=== PATIENT | female | born 1985 | race Caucasian/White ===

== ENCOUNTER 2019-11-20 16:19 | Emergency (ER) | payer MEDICAID ==
--- NOTE | 2019-11-20 16:34 | ER Document Report ---
ED Medical Screen (RME) - General Chief Complaint: Psych Problem Stated Complaint: IVC W/ PAPERS Time Seen by Provider: 11/20/19 16:31 - HPI Notes: 11/20/19 16:32 Patient is a 34-year-old female placed on IVC papers by her father with concern of alcohol abuse and abnormal behavior. It was reported that she stated when she was in the bathtub that she just wanted to "." Patient is adamantly denying this at this time. Patient is very upset that she is even here. The IVC papers also noted that even when it is cold outside she is sleeping on the porch. She has never been diagnosed with any mental health issues. She did go through methadone clinic in the past. She denies any other drug use, but does smoke cigarettes. No recent illness. No fever, headache, chest pain, shortness breath, abdominal pain. Denies . I have treated and performed a rapid initial assessment of this patient. A comprehensive ED assessment and evaluation of the patient, analysis of test results and completion of medical decision making process will be conducted by additional ED providers. PHYSICAL EXAMINATION: GENERAL: Well-appearing, well-nourished and in no acute distress. A&Ox4. Patient is not very forthcoming with the interview questions and states that she will no longer be answering any questions as there are too many people around her (i.e. security) Neuro: Cranial nerves grossly intact Psych: Patient is very irritable - Related Data Allergies/Adverse Reactions: No Known Allergies Allergy (Unverified 05/31/19 13:32) Past Medical History Neurological Medical History: Reports: Hx Seizures Renal/ Medical History: Denies: Hx Peritoneal Dialysis Past Surgical History: Reports: Hx Section Physical Exam - Vital signs Vitals: Temp Pulse Resp BP Pulse Ox 98.1 F 121 H 22 H 137/95 H 97 11/20/19 16:28 11/20/19 16:28 11/20/19 16:28 11/20/19 16:28 11/20/19 16:28 Course - Vital Signs Vital signs: Temp Pulse Resp BP Pulse Ox 98.1 F 121 H 22 H 137/95 H 97 11/20/19 16:28 11/20/19 16:28 11/20/19 16:28 11/20/19 16:28 11/20/19 16:28
[2019-11-20 18:19] LABS: ABSOLUTE LYMPHOCYTES (AUTO) 2.6 10^3/uL (0.5-4.7); ABSOLUTE MONOCYTES (AUTO) 0.3 10^3/uL (0.1-1.4); ABSOLUTE NEUT (AUTO) 3.4 10^3/uL (1.7-8.2); BASOPHILS % (AUTO) 0.7 % (0-2); EOSINOPHILS % (AUTO) 0.6 % (0-6); HEMATOCRIT 44.1 % (36.0-47.0); HEMOGLOBIN 14.9 g/dL (12.0-15.5); LYMPHOCYTES % (AUTO) 40.1 % (13-45); MEAN CORPUSCULAR HEMOGLOBIN 32.6 pg (27.0-33.4); MEAN CORPUSCULAR HGB CONC 33.7 g/dL (32.0-36.0); MEAN CORPUSCULAR VOLUME 97 fl (80-97); MONOCYTES % (AUTO) 5.2 % (3-13); PLATELET COUNT 186 10^3/uL (150-450); RED BLOOD COUNT 4.56 10^6/uL (3.72-5.28); RED CELL DISTRIBUTION WIDTH 20.5 % (11.5-14.0); SEGMENTED NEUTROPHILS % (AUTO) 53.4 % (42-78); TOTAL CELLS COUNTED % (AUTO) 100 %; WHITE BLOOD COUNT 6.5 10^3/uL (4.0-10.5)
[2019-11-20 18:27] LABS: ALBUMIN 4.7 g/dL (3.5-5.0); ALCOHOL 265 mg/dL (NONE DETECTED); ALKALINE PHOSPHATASE 84 U/L (38-126); ANION GAP 18 (5-19); ASPARTATE AMINO TRANSFERASE 229 U/L (14-36); BILIRUBIN,DIRECT 0.3 mg/dL (0.0-0.4); BILIRUBIN,TOTAL 0.8 mg/dL (0.2-1.3); BLOOD UREA NITROGEN 8 mg/dL (7-20); CALCIUM 9.5 mg/dL (8.4-10.2); CARBON DIOXIDE 21 mmol/L (22-30); CHLORIDE 104 mmol/L (98-107); GLUCOSE 92 mg/dL (75-110); POTASSIUM 3.6 mmol/L (3.6-5.0); TOTAL PROTEIN 7.9 g/dL (6.3-8.2)
[2019-11-20 18:31] LABS: ACETAMINOPHEN < 10 ug/mL (10-30); SALICYLATE < 1.0 mg/dL (2.0-20.0)
[2019-11-20] MEDS ORDERED: DIPHENHYDRAMINE HCL 50 MG CAPSULE PO ONE (18:35)
--- NOTE | 2019-11-20 18:43 | ER Document Report ---
Entered by RIVKA DERAS SCRIBE 11/20/19 1746 Acting as scribe for:JOSH HERNANDEZ MD ED Psych Disorder / Suicide - General Chief Complaint: Psych Problem Stated Complaint: IVC W/ PAPERS Time Seen by Provider: 11/20/19 16:31 Information source: Patient Notes: 34 year old female patient presents to the emergency department today on IVC paperwork for alleged suicidal comments. IVC paperwork states that the patient has been consuming EtOH heavily recently, not sleeping, and made a comment today while bathing that she was "tired and wanted to ". Patient has been committed on multiple occasions in the past per IVC paperwork. Patient does endorse some of the details from the IVC petition including EtOH abuse, not sleeping, and recent weight loss. Patient does not endorse the suicidal comment that her father mentions in the paperwork. Patient states "I said that I was tired but never said I wanted to ". Patient states that "this state is ridiculous", going on to add that she recently [place] here from [place] and they "won't give her methadone and xanax at the same time here". Patient has been on 120mg of methadone in the past as well as 2mg xanax daily which she has not had since moving here. Patient attributes all of her current problems with not having these medications. Patient states she has not been getting her Xanax or her methadone and admits to self-medicating with alcohol for her anxiety. Patient has had EtOH withdrawal causing seizures in the past, last time being about one week ago. TRAVEL OUTSIDE OF THE [place] IN LAST 30 DAYS: No - Related Data Allergies/Adverse Reactions: No Known Allergies Allergy (Unverified 05/31/19 13:32) Home Medications: not currewntly on medications. Past Medical History - General Information source: Patient Last Menstrual Period: One week ago - Social History Smoking Status: Current Every Day Smoker Cigarette use (# per day): Yes - 1 1/2 per day Chew tobacco use (# tins/day): No Smoking Education Provided: No Frequency of alcohol use: Heavy Drug Abuse: Heroin - Prior history of IV heroin abuse. Presently on a methadone program. Lives with: Family Family History: DM - Mother Patient has suicidal ideation: No Patient has homicidal ideation: No Neurological Medical History: Reports: Hx Seizures - EtOH withdrawal Psychiatric Medical History: Reports: Hx Anxiety Past Surgical History: Reports: Hx Section Review of Systems - Review of Systems Constitutional: See HPI, Other - Admits to EtOH abuse, Weight loss - 20 lbs recently, without trying to lose weight EENT: No symptoms reported Cardiovascular: No symptoms reported Respiratory: No symptoms reported Gastrointestinal: No symptoms reported Genitourinary: No symptoms reported Female Genitourinary: No symptoms reported Musculoskeletal: No symptoms reported Skin: No symptoms reported Hematologic/Lymphatic: No symptoms reported Neurological/Psychological: See HPI, Depression, Anxiety. denies: Suicidal ideation -: Yes All other systems reviewed and negative Physical Exam - Vital signs Vitals: Temp Pulse Resp BP Pulse Ox 98.1 F 121 H 22 H 137/95 H 97 11/20/19 16:28 11/20/19 16:28 11/20/19 16:28 11/20/19 16:28 11/20/19 16:28 - Notes Notes: General: Alert, appears well. EtOH odor on breath. HEENT: Normocephalic. Atraumatic. PERRL. Extraocular movements intact. Oropharynx clear. Neck: Supple. Non-tender. Respiratory: No respiratory distress. Clear and equal breath sounds bilaterally. Cardiovascular: Regular rate and rhythm. Abdominal: Normal Inspection. Non-tender. No distension. Normal Bowel Sounds. Back: No gross abnormalities. Extremities: Moves all four extremities. Upper extremities: Normal inspection. Normal ROM. Lower extremities: Normal inspection. No edema. Normal ROM. Neurological: Normal cognition. AAOx4. Normal speech. Psychological: Normal affect. Normal Mood. Denies suicidal ideation. Skin: Warm. Dry. Normal color. Course - Vital Signs Vital signs: Temp Pulse Resp BP Pulse Ox 98.1 F 121 H 22 H 137/95 H 97 11/20/19 16:28 11/20/19 16:28 11/20/19 16:28 11/20/19 16:28 11/20/19 16:28 - Laboratory Result Diagrams: 11/20/19 17:05 11/20/19 17:05 Laboratory results interpreted by me: 11/20/19 11/20/19 11/20/19 17:05 17:05 17:05 RDW 20.5 H Carbon Dioxide 21 L AST 229 H Urine Protein 100 H Urine Glucose (UA) 50 H Urine Ketones TRACE H Urine Blood MODERATE H Ur Leukocyte Esterase TRACE H Salicylates < 1.0 L Acetaminophen < 10 L - EKG Interpretation by Me EKG shows normal: Sinus rhythm, [place], Intervals, QRS Complexes, ST-T Waves Rate: Tachycardia - 107 Discharge - Discharge Clinical Impression: Passive suicidal ideations, Chronic alcohol abuse Depression Qualifiers: Depression Type: unspecified Qualified Code(s): F32.9 - Major depressive disorder, single episode, unspecified Opiate dependence Qualifiers: Substance use status: with unspecified opioid-induced disorder Qualified Code(s): F11.29 - Opioid dependence with unspecified opioid-induced disorder Alcohol intoxication Qualifiers: Complication of substance-induced condition: with unspecified complication Qualified Code(s): F10.929 - Alcohol use, unspecified with intoxication, unspecified Condition: Stable Disposition: PSYCH HOSP/UNIT Scribe Attestation: 11/20/19 21:23 I personally performed the services described in the documentation, reviewed and edited the documentation which was dictated to the scribe in my presence, and it accurately records my words and actions. I personally performed the services described in the documentation, reviewed and edited the documentation which was dictated to the scribe in my presence, and it accurately records my words and actions.
[2019-11-20 18:46] LABS: APPEARANCE,URINE CLOUDY; BILIRUBIN,URINE NEGATIVE (NEGATIVE); COLOR,URINE YELLOW; GLUCOSE, URINE 50 mg/dL (NEGATIVE); KETONES,URINE TRACE mg/dL (NEGATIVE); LEUKOCYTE ESTERASE,URINE TRACE (NEGATIVE); NITRITE,URINE NEGATIVE (NEGATIVE); PROTEIN,URINE 100 mg/dL (NEGATIVE); URINE SPECIFIC GRAVITY 1.018; UROBILINOGEN,URINE NEGATIVE mg/dL (<2.0)
[2019-11-20 18:50] LABS: URINE AMPHETAMINES SCREEN NEGATIVE; URINE BARBITURATES SCREEN NEGATIVE; URINE BENZODIAZEPINES SCREEN NEGATIVE; URINE COCAINE SCREEN NEGATIVE; URINE MARIJUANA (THC) SCREEN NEGATIVE; URINE PHENCYCLIDINE SCREEN NEGATIVE
[2019-11-20 18:53] LABS: URINE METHADONE SCREEN UNCONFIRMED POSITIVE
[2019-11-20] MEDS ORDERED: LORAZEPAM 1 MG TABLET PO ONE (22:34)
[2019-11-21] MEDS ORDERED: LORAZEPAM 1 MG TABLET PO ONE (00:28)
[2019-11-21] MEDS ORDERED: LORAZEPAM 1 MG TABLET PO PRN ×3 (02:40→18:07)
--- NOTE | 2019-11-21 07:46 | EKG REPORT ---
SEVERITY:- BORDERLINE ECG - SINUS TACHYCARDIA NONSPECIFIC ST-T CHANGES- INFERIOR LEADS : Confirmed by: Santana Rocha MD 21-Nov-2019 07:45:25
[2019-11-21] MEDS ORDERED: DIPHENHYDRAMINE HCL 50 MG CAPSULE PO ONE (10:38)
[2019-11-21] MEDS ORDERED: HALOPERIDOL 5 MG TABLET PO ONE (10:38)
[2019-11-21] MEDS ORDERED: NITROFURANTOIN MONOHYD/M-CRYST 100 MG CAPSULE PO ONE (10:39)
[2019-11-21] MEDS ORDERED: HALOPERIDOL 5 MG TABLET PO PRN (10:40)
[2019-11-21] MEDS ORDERED: DIPHENHYDRAMINE HCL 50 MG CAPSULE PO PRN (10:41)
--- NOTE | 2019-11-21 14:30 | ER Document Report ---
Doctor's Note Notes: 11/21/19 14:28 Patient's vital signs and previous labs, diagnostic images reviewed. She is IVC'd for suicidal commands. reviewed mental health notes, nurse's notes and previous providers notes. VSS. Pt is in no distress at this time. Denies any SI or HI. Patient does have a UTI, will start treating her with Macrobid a ntibiotic therapy. First dose was already given. General: A&Ox3. Answers questions appropriately. Heart: RRR Lungs: CTAB Psych: Flat affect A/P: Continue monitoring and rec's per . Normal diet Patient is stay for another day per mental health 11/21/19 14:29 11/21/19 14:30
--- NOTE | 2019-11-21 16:07 | ER Document Report ---
Doctor's Note Notes: 11/21/19 15:54 Patient who came in with alcohol intoxication and is currently being monitored for alcohol withdrawal who is also making concerning statements for self-harm and possible suicidal ideation. After discussion with behavioral health team patient has been converted to a full involuntary commitment. Aside from t achycardia physical exam is grossly unremarkable and tachycardia has been steadily improving.. CIWA with appropriate benzodiazepine treatment will be placed. Patient is quite displeased with this plan.
[2019-11-21] MEDS ORDERED: LORAZEPAM 1 MG TABLET PO SCH (16:45)
[2019-11-21] MEDS: NITROFURANTOIN MONOHYD/M-CRYST 100 MG CAPSULE PO SCH (17:36)
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
[2019-11-22] MEDS: NITROFURANTOIN MONOHYD/M-CRYST 100 MG CAPSULE PO SCH (06:56)
--- NOTE | 2019-11-22 09:58 | PSYCHOLOGICAL NOTE ---
Psych Note - Psych Note Date seen by psych provider: 11/22/19 Time seen by psych provider: 09:05 Psych Note: Reason for Consult: IVC Check in Conducted with patient Patient reports frustration with the fact that her parents petitioned her for involuntary commitment. She reports that she was in the bathtub relaxing and stated that she felt she could not do it anymore however adamantly denies this was a comment indicating suicidal ideation. She reports that coming from [place] her substance abuse treatment with methadone significantly changed. She reports that with [facility] I started her on a much lower dose and instead of using positive coping skills she turned to drinking. She reports that she was dropped from the program because of this and told that she needed to go to [facility] for treatment before being re-admitted into their methadone program. Patient reports that because of her drinking she had physical exhaustion stating "people think drinking is an escape but honestly it is really hard work because of everything that happens when you are not drinking." Patient reports that she has a young daughter and she would never harm herself because of her. She confirms both she and her daughter live with her parents. Patient discloses that she is not ready to go to [facility] and has been telling her family to let her prepare herself and then she will voluntarily go. Patient's mood is euthymic with congruent affect as evidenced by smiling engaging with clinician. She engages appropriate with clinician and maintains good eye contact. Conversational speech is within normal rate, tone and prosody. Patient confirms her parents are part of her plan of care and consents for the behavior health team to contact her mother. Impression/Plan: Patient is recommended for rescind of Petition and is cleared from acute psychiatric services. Patient reports moving to [place] from [place] and has experienced a significant difference in plan of care approaches. She disclosed her plan is to go to [facility] "when I get my shit together" so she can be re- established in the methadone program at the [facility]. She denies any thoughts of wanting to harm herself or others and reports her comments where misunderstood. She engaged fully and appropriately with clinician. She is encouraged to follow through with her self-developed plan of care to voluntarily go to [facility] for substance misuse treatment. Dr. Shultz was consulted on the care and management of this patient; attending physician is in agreement with recommendations and dispositions.
--- NOTE | 2019-11-22 10:15 | ER Document Report ---
Doctor's Note Notes: 11/22/19 10:15 S: Rounded on patient this morning. She has been in our emergency department for not quite 2 days on IVC papers. She was brought in by parents after she stated that she was "tired" and they thought that she was expressing suicidal ideations. She is a patient who has had a long history of polysubstance abuse. For several years while she lived in [place] she was on methadone and also concurrently taking Xanax. She moved down to [place] about a year ago and got into methadone clinic but was not allowed to take Xanax at the same time. She states that she has been using alcohol in order to help her cope. She has been using quite a bit. She does have a history of alcoholism and alcohol withdrawal seizures. She was monitored here in the emergency department for any seizure activity. Behavioral health is seen the patient and feel like she can be discharged home with close outpatient follow-up for detox with [facility]. Patient is aware of this plan and agrees. She denies any SI, HI, hallucinations this morning. She is does express a lot of frustration with the methadone program here in [place]. She states that the antibiotic that she was placed onMacrobidhurts her stomach so we will start her on a new antibiotic. O: Constitutional: Alert, oriented, in no acute distress. Cardiac: Regular rate and rhythm, no murmurs, rubs, gallops Lungs: Clear to auscultation, no wheezes, rhonchi, rales Abdomen: Nontender, soft, nondistended Psych: Denies SI, HI, hallucinations. She voices frustration with not being able to have her Xanax and methadone as she deems appropriate for herself. She has no tremors. She appears sober A/P: Spoke with behavioral health about the patient and her IVC papers have been rescinded. They have encouraged patient to follow-up with [facility] and patient agrees with the plan. We will discharge her home. There are no psychot ropic medication recommendations for discharge at this time. I have encouraged patient strongly to follow-up with [facility]. She agrees with the plan. Mom on the way for ride.
[2019-11-22 10:37] VITALS: BP 140/85
== END 2019-11-22 11:08 | disposition home or self-care (01) ==
LOC: ER 16:19
DX: F10.229 Alcohol dependence with intoxication, unspecified (principal); F32.9 Major depressive disorder, single episode, unspecified; R45.851 Suicidal ideations; F11.29 Opioid dependence with unspecified opioid-induced disorder; R63.4 Abnormal weight loss; F41.9 Anxiety disorder, unspecified; R00.0 Tachycardia, unspecified; F17.210 Nicotine dependence, cigarettes, uncomplicated; N39.0 Urinary tract infection, site not specified
CPT/HCPCS: 93005; 36415; 87086; 80307 ×4; 84703; 85025; 87088; 80053; 81001; 87186; 93010; J3490 ×5; 99285; J8499

== ENCOUNTER 2019-12-01 12:54 | Observation (INO) | payer MEDICAID, OTHER ==
[2019-12-01] MEDS ORDERED: THIAMINE HCL 100 MG, FOLIC ACID 1 MG in NORMAL SALINE 250 ML IV ONE (13:50)
[2019-12-01] MEDS ORDERED: RINGERS SOLUTION,LACTATED 2,000 ML IV ONE (13:50)
[2019-12-01] MEDS ORDERED: METOCLOPRAMIDE HCL INJ/PF 10 MG/2 ML SDV IV ONE (13:51)
--- NOTE | 2019-12-01 13:53 | ER Document Report ---
ED Medical Screen (RME) - General Chief Complaint: Diarrhea Stated Complaint: DIARRHEA Time Seen by Provider: 12/01/19 13:33 Notes: Patient is a 34-year-old female who presents to the emergency department for diarrhea and vomiting. Patient has a is an everyday drinker and drinks vodka. She currently has a cup of vodka here in the emergency department. Patient also vapes. Patient was here on November 18 for suicidal ideations. She has a history of depression and is not currently on medications. She was also diagnosed with a urinary tract infection when she was here on the , but states that the medications make her "sick." Exam: Tearful, labile mood. I have greeted and performed a rapid initial assessment of this patient. A comprehensive ED assessment and evaluation of the patient, analysis of test results and completion of medical decision making process will be conducted by an additional ED providers. TRAVEL OUTSIDE OF THE U.S. IN LAST 30 DAYS: No - Related Data Allergies/Adverse Reactions: No Known Allergies Allergy (Verified 12/01/19 13:32) Past Medical History Neurological Medical History: Reports: Hx Seizures - EtOH withdrawal Renal/ Medical History: Denies: Hx Peritoneal Dialysis Psychiatric Medical History: Reports: Hx Anxiety Past Surgical History: Reports: Hx Section Physical Exam - Vital signs Vitals: Temp Pulse Resp BP Pulse Ox 97.3 F 125 H 22 H 143/81 H 96 12/01/19 12:55 12/01/19 12:55 12/01/19 12:55 12/01/19 12:55 12/01/19 12:55 Course - Vital Signs Vital signs: Temp Pulse Resp BP Pulse Ox 97.3 F 125 H 22 H 143/81 H 96 12/01/19 12:55 12/01/19 12:55 12/01/19 12:55 12/01/19 12:55 12/01/19 12:55
[2019-12-01] MEDS ORDERED: KETAMINE HCL INJ 500 MG/10 ML VIAL IM ONE (13:58)
[2019-12-01] MEDS ORDERED: LORAZEPAM INJ 2 MG/1 ML VIAL IM ONE (13:58)
--- NOTE | 2019-12-01 14:44 | ER Document Report ---
ED General - General Chief Complaint: ETOH Abuse Stated Complaint: DIARRHEA Time Seen by Provider: 12/01/19 13:33 Mode of Arrival: Ambulatory Information source: Parent Cannot obtain history due to: Intoxicated Notes: 34-year-old female arrives by POV with her parents Joaquin Ponce well as pts daughter by name of Sondra and they now have custody of this granddaughter. She was evaluated by Dr. Shultz around 2 weeks ago because of similar alcoholism problems. For several days now the patient is been complaining of suicidal ideation but continues to drink 1 quart bottle of vodka a day and she has been doing this since she was 14 years old. She is positive for hepatitis C. she also has been smoking since she was 10 years old greater than 1 pack/day. Walk to the triage desk with a bottle of vodka in her hands and advises that she needs help. The parents reports that they have done all they have could and have spent a lot of money and try to get her to quit her drinking. Patient has been to many rehab facilities but always begins to drink again. Patient presented to the triage area with a flask of vodka asking for help. When someone tried to take her flask of vodka she became quite agitated and security was required to restrain her. Dr. Shultz was called at bedside after the patient was given 400 ketamine and 2 mg of Ativan IM. The patient was then given IV fluids wide open as well as banana bag labs were drawn for alcohol Tylenol level salicylate levels and LFTs CBC etc. patient was quite sedate after medications but was breathing well with nursing staff assessing patient by 1430 TRAVEL OUTSIDE OF THE [place] IN LAST 30 DAYS: No - HPI Onset: Just prior to arrival Onset/Duration: Sudden Quality of pain: No pain Severity: Moderate Pain Level: 2 Associated symptoms: Weakness, Other - Mother and father report patient was defecating over her room at the house Exacerbated by: Movement, Walking Similar symptoms previously: Yes Recently seen / treated by doctor: Yes - Related Data Allergies/Adverse Reactions: No Known Allergies Allergy (Verified 12/01/19 13:32) Past Medical History - General Information source: Patient, Parent, Law Enforcement - And [facility], Emergency Med Personnel Cannot obtain history due to: Intoxicated - Social History Smoking Status: Current Every Day Smoker Cigarette use (# per day): Yes Chew tobacco use (# tins/day): No Smoking Education Provided: Yes Frequency of alcohol use: Heavy Drug Abuse: Heroin Family History: DM - Mother Patient has suicidal ideation: No Patient has homicidal ideation: No Neurological Medical History: Reports: Hx Seizures - EtOH withdrawal Renal/ Medical History: Denies: Hx Peritoneal Dialysis Psychiatric Medical History: Reports: Hx Anxiety Past Surgical History: Reports: Hx Section Review of Systems - Review of Systems Constitutional: See HPI, Malaise, Weakness EENT: See HPI Cardiovascular: No symptoms reported Respiratory: No symptoms reported Gastrointestinal: See HPI, Fecal incontinence Genitourinary: No symptoms reported Female Genitourinary: No symptoms reported Musculoskeletal: No symptoms reported Skin: No symptoms reported Hematologic/Lymphatic: No symptoms reported Neurological/Psychological: No symptoms reported Physical Exam - Vital signs Vitals: Temp Pulse Resp BP Pulse Ox 97.3 F 125 H 22 H 143/81 H 96 12/01/19 12:55 12/01/19 12:55 12/01/19 12:55 12/01/19 12:55 12/01/19 12:55 Interpretation: Hypertensive, Tachycardic, Tachypneic - HEENT Head: Normocephalic Eyes: Normal Conjunctiva: Normal Cornea: Normal Extraocular movements intact: Yes Eyelashes: Normal Pupils: PERRL Pharynx: Normal Neck: Normal - Respiratory Respiratory status: Respiratory distress, Tachypnea, Other - Patient screaming at hospital security at time of exam in room #19; security were helping to m aintain her from hurting herself or others - Cardiovascular Rhythm: Tachycardia Heart sounds: Normal auscultation Murmur: No Friction rub: No Deedee's crunch: No - Abdominal Inspection: Normal Distension: No distension Bowel sounds: Normal Tenderness: Nontender - Genitourinary External exam: Normal - Extremities General upper extremity: Normal inspection, Normal strength General lower extremity: Normal inspection, Normal strength Course - Vital Signs Vital signs: Temp Pulse Resp BP Pulse Ox 97.3 F 125 H 17 141/96 H 100 12/01/19 12:55 12/01/19 12:55 12/01/19 16:01 12/01/19 16:00 12/01/19 16:01 - Laboratory Result Diagrams: 12/01/19 14:24 12/01/19 14:24 Laboratory results interpreted by me: 02/02/20 02/02/20 14:24 14:24 MCH 33.7 H RDW 22.8 H Glucose 115 H AST 314 H Alkaline Phosphatase 129 H Salicylates < 1.0 L Acetaminophen < 10 L Serum Alcohol 396 H* Critical Care Note - Critical Care Note Total time excluding time spent on procedures (mins): 90 Comments: Discussed this case with [facility] hospitalist at 1630 was able to speak with Dr. Villanueva who is in charge around 1635; he advised patient to go to the floor with Dr. Walton Discharge - Discharge Clinical Impression: Suicidal ideation, Toxic effect of ethanol, intentional self-harm Condition: Good Disposition: ADMITTED INPATIENT Admitting Provider: Isabelle (Hospitalist)
[2019-12-01 14:45] LABS: ABSOLUTE LYMPHOCYTES (AUTO) 2.1 10^3/uL (0.5-4.7); ABSOLUTE MONOCYTES (AUTO) 0.6 10^3/uL (0.1-1.4); ABSOLUTE NEUT (AUTO) 3.1 10^3/uL (1.7-8.2); BASOPHILS % (AUTO) 0.5 % (0-2); EOSINOPHILS % (AUTO) 0.1 % (0-6); HEMATOCRIT 43.7 % (36.0-47.0); HEMOGLOBIN 15.2 g/dL (12.0-15.5); LYMPHOCYTES % (AUTO) 35.9 % (13-45); MEAN CORPUSCULAR HEMOGLOBIN 33.7 pg (27.0-33.4); MEAN CORPUSCULAR HGB CONC 34.8 g/dL (32.0-36.0); MEAN CORPUSCULAR VOLUME 97 fl (80-97); MONOCYTES % (AUTO) 10.7 % (3-13); PLATELET COUNT 241 10^3/uL (150-450); RED BLOOD COUNT 4.52 10^6/uL (3.72-5.28); RED CELL DISTRIBUTION WIDTH 22.8 % (11.5-14.0); SEGMENTED NEUTROPHILS % (AUTO) 52.8 % (42-78); TOTAL CELLS COUNTED % (AUTO) 100 %; WHITE BLOOD COUNT 5.9 10^3/uL (4.0-10.5)
[2019-12-01 14:53] LABS: ALBUMIN 4.7 g/dL (3.5-5.0); ALKALINE PHOSPHATASE 129 U/L (38-126); ANION GAP 16 (5-19); ASPARTATE AMINO TRANSFERASE 314 U/L (14-36); BILIRUBIN,DIRECT 0.1 mg/dL (0.0-0.4); BILIRUBIN,TOTAL 0.7 mg/dL (0.2-1.3); BLOOD UREA NITROGEN 7 mg/dL (7-20); CALCIUM 9.2 mg/dL (8.4-10.2); CARBON DIOXIDE 24 mmol/L (22-30); CHLORIDE 103 mmol/L (98-107); GLUCOSE 115 mg/dL (75-110); POTASSIUM 3.8 mmol/L (3.6-5.0); TOTAL PROTEIN 7.6 g/dL (6.3-8.2)
[2019-12-01 14:55] LABS: ACETAMINOPHEN < 10 ug/mL (10-30); SALICYLATE < 1.0 mg/dL (2.0-20.0)
[2019-12-01 15:02] LABS: ALCOHOL 396 mg/dL (NONE DETECTED)
[2019-12-01] MEDS ORDERED: MIDAZOLAM 2 MG/2 ML INJ IV ONE ×2 (15:53→16:01)
--- NOTE | 2019-12-01 16:52 | RADIOLOGY REPORT (SQ) ---
EXAM DESCRIPTION: CHEST SINGLE VIEW COMPLETED DATE/TIME: 12/01/2019 4:38 pm REASON FOR STUDY: intoxicated COMPARISON: None. EXAM PARAMETERS: NUMBER OF VIEWS: One view. TECHNIQUE: Single frontal radiographic view of the chest acquired. RADIATION DOSE: NA LIMITATIONS: None. FINDINGS: LUNGS AND PLEURA: No opacities, masses or pneumothorax. No pleural effusion. MEDIASTINUM AND HILAR STRUCTURES: No masses. Contour normal. HEART AND VASCULAR STRUCTURES: Heart normal in size. Normal vasculature. BONES: No acute findings. HARDWARE: None in the chest. OTHER: No other significant finding. IMPRESSION: NO ACUTE RADIOGRAPHIC FINDING IN THE CHEST. TECHNICAL DOCUMENTATION: JOB ID: [id number] [employer]- All Rights Reserved Reading location - IP/workstation name: [email or web address]
[2019-12-01] MEDS ORDERED: ONDANSETRON HCL INJ/PF 4 MG/2 ML SDV IV PRN (17:31)
[2019-12-01] MEDS ORDERED: PROMETHAZINE HCL INJ 25 MG/1 ML VIAL IV PRN (17:31)
[2019-12-01] MEDS ORDERED: ACETAMINOPHEN 325 MG TABLET PO PRN (17:31)
[2019-12-01] MEDS ORDERED: NORMAL SALINE 1000 ML 1,000 ML IV PRN (17:31)
[2019-12-01] MEDS ORDERED: HALOPERIDOL LACTATE INJ 5 MG/1 ML VIAL IM PRN (17:36)
[2019-12-01] MEDS ORDERED: LORAZEPAM INJ 2 MG/1 ML VIAL IV PRN (17:39)
[2019-12-01] MEDS ORDERED: NORMAL SALINE 1000 ML 1,000 ML IV ONE (17:45)
--- NOTE | 2019-12-01 18:04 | PDOC H&P ---
History of Present Illness Patient complains of: Alcohol intoxication History of Present Illness: PAUL RON is a 34 year old female with a history of alcohol abuse [daily drinker], bipolar disorder not on any meds, recent diagnosis of hepatitis C virus-untreated, IV drug abuse, anxiety, who was brought into the hospital by her parents. Her parents had noted her to be once again incoherent, intoxicated because she had been constantly drinking alcohol. Patient has been very dehydrated and has not been eating much. Family reports that patient was stating that she is just tired and wants to stop. There was concern about suicidal ideation but patient was very intoxicated at the time already. When patient was brought to the ER patient was very agitated with a bottle of alcohol in her hand and required several security guards to subdue her. She was placed in four-point restraints and given 2 mg of Ativan and 400 mg of ketamine. Currently patient is still awake requesting to be let out of four-point r estraints. She is still clearly intoxicated. Most of history obtained from patient's father and mother via telephone. Past Medical History Neurological Medical History: Reports: Seizures - EtOH withdrawal Psychiatric Medical History: Reports: Alcohol Dependency, Bipolar Disorder, General Anxiety Disorder, Substance Abuse Infectious Medical History: Reports: Hepatitis C Past Surgical History Past Surgical History: Reports: Section Social History Information Source: Parent Smoking Status: Current Every Day Smoker Drugs: Heroin - Prior history of heroin use - Advance Directive Resuscitation Status: Other - Full code given too intoxicated to make her own decision. Family History Family History: DM - Mother Parental Family History Reviewed: Yes Children Family History Reviewed: Unknown Sibling(s) Family History Reviewed.: Unknown Medication/Allergy Home Medications: No Home Medications 12/01/19 Allergies/Adverse Reactions: No Known Allergies Allergy (Verified 12/01/19 13:32) Review of Systems ROS unobtainable: Due to mental status Physical Exam Vital Signs: Temp Pulse Resp BP Pulse Ox 97.3 F 125 H 17 141/96 H 100 12/01/19 12:55 12/01/19 12:55 12/01/19 16:01 12/01/19 16:00 12/01/19 16:01 Intake & Output 11/30/19 12/01/19 12/02/19 06:59 06:59 06:59 Intake Total 2251.2 Balance 2251.2 Weight 85.9 kg General appearance: PRESENT: no acute distress, cooperative, obese Eye exam: PRESENT: EOMI Mouth exam: PRESENT: neck supple Neck exam: ABSENT: JVD Respiratory exam: PRESENT: clear to auscultation jhony, unlabored. ABSENT: retraction, rhonchi, wheezes Cardiovascular exam: PRESENT: +S1, +S2, tachycardia. ABSENT: irregular rhythm GI/Abdominal exam: PRESENT: soft. ABSENT: rebound, rigid, tenderness Extremities exam: ABSENT: pedal edema Neurological exam: PRESENT: alert, awake, oriented to person, other - Protecting airway. ABSENT: oriented to place, oriented to time, oriented to situation Psychiatric exam: PRESENT: agitated Focused psych exam: ABSENT: delusional Results Laboratory Results: 12/01/19 14:24 12/01/19 14:24 12/01/19 12/01/19 12/01/19 14:24 14:24 14:24 WBC 5.9 RBC 4.52 Hgb 15.2 Hct 43.7 MCV 97 MCH 33.7 H MCHC 34.8 RDW 22.8 H Plt Count 241 Seg Neutrophils % 52.8 Sodium 143.4 Potassium 3.8 Chloride 103 Carbon Dioxide 24 Anion Gap 16 BUN 7 Creatinine 0.68 Est GFR ( Amer) > 60 Glucose 115 H Calcium 9.2 Total Bilirubin 0.7 AST 314 H Alkaline Phosphatase 129 H Total Protein 7.6 Albumin 4.7 Serum HCG, Qual NEGATIVE Impressions: Chest X-Ray 12/01/19 14:57 IMPRESSION: NO ACUTE RADIOGRAPHIC FINDING IN THE CHEST. Assessment and Plan - Diagnosis (1) Toxic metabolic encephalopathy Is this a current diagnosis for this admission?: Yes Plan: Very agitated secondary to alcohol intoxication Check urine drug screen. Requiring four-point restraints due to violent behavior Haldol IM as needed (2) Acute alcohol intoxication with alcoholism Qualifiers: Complication of substance-induced condition: with unspecified complication Qualified Code(s): F10.229 - Alcohol dependence with intoxication, unspecified Is this a current diagnosis for this admission?: Yes Plan: Alcohol level of over 300 Received a bolus of lactated Ringer's and IV thiamine in the ER. Given a normal saline bolus and start on D5 normal saline Currently not withdrawing as acutely intoxicated but will start to monitor for withdrawals early later today given a history of withdrawal seizure reported by her mother. Placed on CIWA monitoring every 4 hours starting later tonight. (3) Obesity (BMI 30-39.9) Is this a current diagnosis for this admission?: Yes Plan: Patient is to take better care of her diet and calorie intake. This will be hard to achieve given her significant substance abuse. (4) Suicidal ideation Is this a current diagnosis for this admission?: Yes Plan: Is not clear the patient truly voiced suicidal ideation based off what patient's mother told me besides she was acutely intoxicated at the time which is her usual substance abuse pattern. Currently on IVC and psychiatric consulted in the ER. I will follow-up regarding this once patient is sober in the morning - Time Time Spent with patient: 35 or more minutes
[2019-12-01] MEDS: DEXTROSE 5%-NORMAL SALINE 1,000 ML IV PRN (19:28)
[2019-12-01 21:06] LABS: APPEARANCE,URINE SLIGHTLY-CLOUDY; BILIRUBIN,URINE NEGATIVE (NEGATIVE); COLOR,URINE YELLOW; GLUCOSE, URINE NEGATIVE (NEGATIVE); KETONES,URINE NEGATIVE (NEGATIVE); LEUKOCYTE ESTERASE,URINE NEGATIVE (NEGATIVE); NITRITE,URINE POSITIVE (NEGATIVE); PROTEIN,URINE 30 mg/dL (NEGATIVE); URINE SPECIFIC GRAVITY 1.009; UROBILINOGEN,URINE NEGATIVE mg/dL (<2.0)
[2019-12-01 21:13] LABS: URINE AMPHETAMINES SCREEN NEGATIVE; URINE BARBITURATES SCREEN NEGATIVE; URINE BENZODIAZEPINES SCREEN NEGATIVE; URINE COCAINE SCREEN NEGATIVE; URINE MARIJUANA (THC) SCREEN NEGATIVE; URINE METHADONE SCREEN NEGATIVE; URINE PHENCYCLIDINE SCREEN NEGATIVE
[2019-12-01] MEDS: LORAZEPAM INJ 2 MG/1 ML VIAL IV PRN (22:46)
--- NOTE | 2019-12-02 00:16 | EKG REPORT ---
SEVERITY:- NORMAL ECG - SINUS RHYTHM : Confirmed by: Marlon Brown 02-Dec-2019 00:16:07
[2019-12-02] MEDS ORDERED: LORAZEPAM INJ 2 MG/1 ML VIAL ONE (00:19)
[2019-12-02] MEDS ORDERED: DIAZEPAM INJ 10 MG/2 ML DISP.SYRIN ONE (00:19)
[2019-12-02] MEDS ORDERED: LORAZEPAM INJ 2 MG/1 ML VIAL IV ONE (00:30)
[2019-12-02] MEDS ORDERED: DIAZEPAM INJ 10 MG/2 ML DISP.SYRIN IV ONE (00:30)
[2019-12-02] MEDS: DEXTROSE 5%-NORMAL SALINE 1,000 ML IV PRN (02:24)
[2019-12-02] MEDS: LORAZEPAM INJ 2 MG/1 ML VIAL IV PRN (04:20)
[2019-12-02] MEDS ORDERED: HALOPERIDOL LACTATE INJ 5 MG/1 ML VIAL IV ONE (05:00)
--- NOTE | 2019-12-02 09:32 | PDOC DISCHARGE SUMMARY ---
Impression - Admit/DC Date/PCP Admission Date/Primary Care Provider: 12/01/19 17:49 Discharge Date: 12/02/19 - Discharge Diagnosis (1) Toxic metabolic encephalopathy Is this a current diagnosis for this admission?: Yes (2) Acute alcohol intoxication with alcoholism Is this a current diagnosis for this admission?: Yes (3) Obesity (BMI 30-39.9) Is this a current diagnosis for this admission?: Yes (4) Suicidal ideation Is this a current diagnosis for this admission?: Yes - Additional Information Resuscitation Status: Full Code Discharge Diet: Regular Home Medications: No Home Medications 12/01/19 History of Present Illiness History of Present Illness: PAUL RON is a 34 year old female with a history of alcohol abuse [daily drinker], bipolar disorder not on any meds, recent diagnosis of hepatitis C virus-untreated, IV drug abuse, anxiety, who was brought into the hospital by her parents. Her parents had noted her to be once again incoherent, intoxicated because she had been constantly drinking alcohol. Patient has been very dehydrated and has not been eating much. Family reports that patient was stating that she is just tired and wants to stop. There was concern about suicidal ideation but patient was very intoxicated at the time already. When patient was brought to the ER patient was very agitated with a bottle of alcohol in her hand and required several security guards to subdue her. She was placed in four-point restraints and given 2 mg of Ativan and 400 mg of ketamine. Currently patient is still awake requesting to be let out of four-point restraints. She is still clearly intoxicated. Most of history obtained from patient's father and mother via telephone. Hospital Course Hospital Course: Patient was admitted after presenting with alcohol intoxication with blood alcohol levels over 300 and impaired judgment expressed with significant agitation and violence requiring security to hold patient down and placed in four-point restraints. Patient received ketamine and Ativan in the ER. I subsequently admitted patient for alcohol intoxication. Patient received IV fluids, thiamine placed on D5 normal saline. Through the night patient got agitated as well and required some Haldol. This morning patient's blood alcohol level is normal and patient is sober. Patient is no longer agitated but does appear anxious to leave and would like to go home. Urine drug screen was negative. Patient is fully oriented at this time. I have rescinded patient's IVC which was placed on initially due to reports from patient's mother that patient was saying that she was tired of her life and she just wants to let it be. This statement with some concern by patient's mother about suicidal thoughts but however patient was very intoxicated at the time she made a statement and had been drinking all day. Now the patient sober patient's denies suicidal or homicidal ideation. Notably, patient never had suicidal plans and never specifically voiced that she wanted to kill herself even while at home. Patient is currently not in active withdrawal. I have discussed with patient about alcohol and substance rehabilitation and have offered patient help with transitioning her to rehab but she has declined our help at this time. Patient is discharged in stable and stable condition. Physical Exam Vital Signs: Temp Pulse Resp BP Pulse Ox 98.2 F 108 H 16 150/99 H 100 12/02/19 08:26 12/02/19 08:26 12/02/19 08:26 12/02/19 08:26 12/02/19 08:26 Intake & Output 12/01/19 12/02/19 12/03/19 06:59 06:59 06:59 Intake Total 4947.2 Balance 4947.2 Weight 87.7 kg General appearance: PRESENT: no acute distress, cooperative Neurological exam: PRESENT: alert, awake, oriented to person, oriented to place, oriented to time, oriented to situation. ABSENT: ataxia, aphasic Psychiatric exam: PRESENT: anxious. ABSENT: agitated Results Laboratory Results: WBC 5.9 10^3/uL (4.0-10.5) 12/01/19 14:24 RBC 4.52 10^6/uL (3.72-5.28) 12/01/19 14:24 Hgb 15.2 g/dL (12.0-15.5) 12/01/19 14:24 Hct 43.7 % (36.0-47.0) 12/01/19 14:24 MCV 97 fl (80-97) 12/01/19 14:24 MCH 33.7 pg (27.0-33.4) H 12/01/19 14:24 MCHC 34.8 g/dL (32.0-36.0) 12/01/19 14:24 RDW 22.8 % (11.5-14.0) H 12/01/19 14:24 Plt Count 241 10^3/uL (150-450) 12/01/19 14:24 Lymph % (Auto) 35.9 % (13-45) 12/01/19 14:24 [place] % (Auto) 10.7 % (3-13) 12/01/19 14:24 Eos % (Auto) 0.1 % (0-6) 12/01/19 14:24 Baso % (Auto) 0.5 % (0-2) 12/01/19 14:24 Absolute Neuts (auto) 3.1 10^3/uL (1.7-8.2) 12/01/19 14:24 Absolute Lymphs (auto) 2.1 10^3/uL (0.5-4.7) 12/01/19 14:24 Absolute Monos (auto) 0.6 10^3/uL (0.1-1.4) 12/01/19 14:24 Absolute Eos (auto) 0.0 10^3/uL (0.0-0.6) 12/01/19 14:24 Absolute Basos (auto) 0.0 10^3/uL (0.0-0.2) 12/01/19 14:24 Seg Neutrophils % 52.8 % (42-78) 12/01/19 14:24 Sodium 143.4 mmol/L (137-145) 12/01/19 14:24 Potassium 3.8 mmol/L (3.6-5.0) 12/01/19 14:24 Chloride 103 mmol/L (98-107) 12/01/19 14:24 Carbon Dioxide 24 mmol/L (22-30) 12/01/19 14:24 Anion Gap 16 (5-19) 12/01/19 14:24 BUN 7 mg/dL (7-20) 12/01/19 14:24 Creatinine 0.68 mg/dL (0.52-1.25) 12/01/19 14:24 Est GFR ( Amer) > 60 (>60) 12/01/19 14:24 Est GFR (MDRD) Non-Af > 60 (>60) 12/01/19 14:24 Glucose 115 mg/dL (75-110) H 12/01/19 14:24 Calcium 9.2 mg/dL (8.4-10.2) 12/01/19 14:24 Total Bilirubin 0.7 mg/dL (0.2-1.3) 12/01/19 14:24 Direct Bilirubin 0.1 mg/dL (0.0-0.4) 12/01/19 14:24 Neonat Total Bilirubin Not Reportable 12/01/19 14:24 Neonat Direct Bilirubin Not Reportable 12/01/19 14:24 Neonat Indirect Bili Not Reportable 12/01/19 14:24 AST 314 U/L (14-36) H 12/01/19 14:24 ALT 96 U/L (<35) 12/01/19 14:24 Alkaline Phosphatase 129 U/L (38-126) H 12/01/19 14:24 Total Protein 7.6 g/dL (6.3-8.2) 12/01/19 14:24 Albumin 4.7 g/dL (3.5-5.0) 12/01/19 14:24 Serum HCG, Qual NEGATIVE (NEGATIVE) 12/01/19 14:24 Urine Color YELLOW 12/01/19 20:20 Urine Appearance SLIGHTLY-CLOUDY 12/01/19 20:20 Urine pH 5.0 (5.0-9.0) 12/01/19 20:20 Ur Specific [place] 1.009 12/01/19 20:20 Urine Protein 30 mg/dL (NEGATIVE) H 12/01/19 20:20 Urine Glucose (UA) NEGATIVE mg/dL (NEGATIVE) 12/01/19 20:20 Urine Ketones NEGATIVE mg/dL (NEGATIVE) 12/01/19 20:20 Urine Blood MODERATE (NEGATIVE) H 12/01/19 20:20 Urine Nitrite POSITIVE (NEGATIVE) H 12/01/19 20:20 Urine Bilirubin NEGATIVE (NEGATIVE) 12/01/19 20:20 Urine Urobilinogen NEGATIVE mg/dL (<2.0) 12/01/19 20:20 Ur Leukocyte Esterase NEGATIVE (NEGATIVE) 12/01/19 20:20 Urine WBC (Auto) 3 /HPF 12/01/19 20:20 Urine RBC (Auto) 1 /HPF 12/01/19 20:20 Urine Bacteria (Auto) 2+ /HPF 12/01/19 20:20 Squamous Epi Cells Auto 11 /HPF 12/01/19 20:20 Urine Mucus (Auto) OCC /LPF 12/01/19 20:20 Urine Ascorbic Acid NEGATIVE (NEGATIVE) 12/01/19 20:20 Salicylates < 1.0 mg/dL (2.0-20.0) L 12/01/19 14:24 Urine Opiates Screen NEGATIVE 12/01/19 20:20 Urine Methadone Screen NEGATIVE 12/01/19 20:20 Acetaminophen < 10 ug/mL (10-30) L 12/01/19 14:24 Ur Barbiturates Screen NEGATIVE 12/01/19 20:20 Ur Phencyclidine Scrn NEGATIVE 12/01/19 20:20 Ur Amphetamines Screen NEGATIVE 12/01/19 20:20 U Benzodiazepines Scrn NEGATIVE 12/01/19 20:20 Urine Cocaine Screen NEGATIVE 12/01/19 20:20 U Marijuana (THC) Screen NEGATIVE 12/01/19 20:20 Serum Alcohol < 10 mg/dL (NONE DETECTED) 12/02/19 05:54 Impressions: Chest X-Ray 12/01/19 14:57 IMPRESSION: NO ACUTE RADIOGRAPHIC FINDING IN THE CHEST. Plan Time Spent: Less than 30 Minutes Stroke Is this a Stroke Patient?: No Acute Heart Failure - Is this a Heart Failure Patient?: No
[2019-12-02] MEDS ORDERED: ENOXAPARIN SODIUM INJ 40 MG/0.4 ML DISP.SYRIN SUBCUT SCH (10:00)
[2019-12-02 10:37] VITALS: BP 142/80
== END 2019-12-02 10:52 | disposition home or self-care (01) ==
LOC: ER 12:54 → EH 17:49 → 5 23:56
PROVIDERS: ADMIT Internal Medicine; ATTEND Internal Medicine
DX: G92 Toxic encephalopathy (principal); F10.229 Alcohol dependence with intoxication, unspecified; E66.9 Obesity, unspecified; Z68.39 Body mass index [BMI] 39.0-39.9, adult; R45.851 Suicidal ideations; B19.20 Unspecified viral hepatitis C without hepatic coma; R45.1 Restlessness and agitation; R45.6 Violent behavior; Z78.1 Physical restraint status; Y90.8 Blood alcohol level of 240 mg/100 ml or more; R53.1 Weakness; F41.1 Generalized anxiety disorder; F17.210 Nicotine dependence, cigarettes, uncomplicated; F11.10 Opioid abuse, uncomplicated; R15.9 Full incontinence of feces; R00.0 Tachycardia, unspecified; R03.0 Elevated blood-pressure reading, without diagnosis of hypertension; R11.10 Vomiting, unspecified; R06.82 Tachypnea, not elsewhere classified; F31.9 Bipolar disorder, unspecified; F17.290 Nicotine dependence, other tobacco product, uncomplicated; Z87.440 Personal history of urinary (tract) infections
CPT/HCPCS: 93005; 99291; 99292; 96372; 96361; 96365; 36415 ×2; 80307 ×5; 84703; 85025; 80053; 81001; 71045; 93010; G0378 ×2; J3360; J3490 ×3; J1630 ×2; J2060 ×2; J3411; J7042 ×2; J7030; J7050; J7120